=== PATIENT | male | born 1955 | race American Indian/Alaskan Native ===

== ENCOUNTER 2020-09-11 15:15 | Emergency (ER) | payer MEDICARE ==
[2020-09-11] MEDS ORDERED: ZIPRASIDONE MESYLATE 20 MG VIAL IM ONE (15:20)
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
[2020-09-11 16:59] LABS: Basophils % (Auto) 0.6 % (0.0-1.8); Eosinophils # (Auto) 0.1 K/mm3 (0.0-0.4); Hematocrit 36.7 % (35.5-45.6); Hemoglobin 12.3 gm/dl (11.8-15.2); Lymphocytes # (Auto) 1.4 K/mm3 (1.2-5.4); Lymphocytes % (Auto) 20.6 % (13.4-35.0); Mean Corpuscular HGB Conc 34 % (32-34); Mean Corpuscular Volume 90 fl (84-94); Monocytes # (Auto) 0.7 K/mm3 (0.0-0.8); Monocytes % (Auto) 11.1 % (0.0-7.3); Platelet Count 222 K/mm3 (140-440); Red Blood Count 4.07 M/mm3 (3.65-5.03); Red Cell Distribution Width 13.5 % (13.2-15.2)
[2020-09-11 17:09] LABS: Calcium 8.8 mg/dL (8.4-10.2)
[2020-09-11] MEDS ORDERED: ALPRAZolam 0.5 MG TAB PO ONE (21:58)
[2020-09-11] MEDS ORDERED: ALPRAZolam 0.5 MG TAB ONE (21:58)
[2020-09-11 22:31] LABS: Bilirubin,Urine NEG (Negative); Blood,Urine NEG (Negative); Color,Urine Yellow (Yellow); Mucus,Urine FEW /HPF; Protein,Urine <15 mg/dL mg/dL (Negative)
[2020-09-11 22:37] LABS: Amphetamine Screen,Urine PRESUMPTIVE NEGATIVE; Benzodiazepines Screen,Urine PRESUMPTIVE NEGATIVE; Cannabinoid Screen,Urine PRESUMPTIVE NEGATIVE; Cocaine Screen,Urine PRESUMPTIVE NEGATIVE; Methadone Screen,Urine PRESUMPTIVE NEGATIVE; Opiate Screen,Urine PRESUMPTIVE NEGATIVE
[2020-09-12] MEDS ORDERED: ZIPRASIDONE MESYLATE 20 MG VIAL IM ONE (10:46)
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
[2020-09-12] MEDS: risperiDONE 0.25 MG TAB PO SCH ×2 (14:45→23:00)
[2020-09-12] MEDS: DIVALPROEX DR 125 MG TAB PO SCH ×2 (14:45→23:00)
[2020-09-12] MEDS: ALPRAZolam 0.5 MG TAB PO PRN ×2 (14:46→17:56)
[2020-09-12] MEDS: traZODone 50 MG TAB PO SCH (22:59)
--- NOTE | 2020-09-13 10:45 | Progress Note ---
Subjective - Reason for Consult Consult date: 09/13/20 Reason for consult: aggression - Chief Complaint Chief complaint: During my interview with the patient this morning, he is lying down. He is a/o x 3. He greets me as I enter the room. The patient is calm and cooperative He denies SI/HI or hallucinations. He states he's doing "well." I spoke with the patient's brother, Jorge A at the patient's request. He wanted to ask his brother if he could live with him. His brother says the patient is dangerous, and can flip like a light switch. He says, Mr. Castillo can not reside with him because his behavior will change in a second. . REVIEW OF SYSTEMS Constitutional: Negative for weight loss ENT: Negative for stridor Respiratory: Negative for cough or hemoptysis All other systems reviewed and are negative MENTAL STATUS EXAMINATION General Appearance and Behavior: Age appropriate, wearing appropriate clothes, calm and cooperative Mood: "well" Affect and affective range: congruent with mood Thought Process: Goal directed Thought Content: Denies Speech: Normal volume, Regular rate and rhythm Suicidal Ideation: Denies Homicidal Ideation: Denies Hallucinations: Denies Delusions: None elicited Impulse Control: normal Insight and Judgment: Limited Memory/Cognition: Normal Attention: Normal Orientation: Alert, oriented Assessment Bipolar Disorder Plan Continue current medications Sitter: Defer to primary Medical: Per primary Disposition: Recommend acute inpatient treatment Will follow. Thank you for this consult. Mental Status Exam - Vital signs Last Vital Signs Temp 97.8 F 09/13/20 09:09 Pulse 98 H 09/13/20 09:09 Resp 17 09/13/20 09:09 BP 124/89 09/13/20 09:09 Pulse Ox 98 09/13/20 09:09
[2020-09-13] MEDS: risperiDONE 0.25 MG TAB PO SCH ×2 (12:44→22:27)
[2020-09-13] MEDS: ALPRAZolam 0.5 MG TAB PO PRN (12:44)
[2020-09-13] MEDS: DIVALPROEX DR 125 MG TAB PO SCH ×2 (12:50→22:27)
[2020-09-13 20:12] VITALS: BP 146/86
[2020-09-13] MEDS: traZODone 50 MG TAB PO SCH (22:27)
--- NOTE | 2020-09-13 22:28 | Event Note ---
Date: 09/13/20 The nurse has asked that I discharged the patient. Patient is being discharged from the ER and sent to the geriatric psych floor. Discharge paperwork prepared for the nurse. Patient to be discharged from the ER and transported directly to the geriatric psych floor
== END 2020-09-13 22:29 | disposition home or self-care (01) ==
LOC: ED 15:15
DX: F23 Brief psychotic disorder (principal); N28.9 Disorder of kidney and ureter, unspecified; F20.89 Other schizophrenia; Z88.0 Allergy status to penicillin
CPT/HCPCS: 36415; 80048; 80307; 81001; 85025; 96372; 99285; J3486; U0003; 80320; G0480